=== PATIENT | female | born 2000 | race Hispanic/Latino ===

== ENCOUNTER 2022-12-29 14:51 | Emergency (ER) | payer OTHER ==
[~2022-12-29] VITALS: Ht 165.1 cm; Wt 63.3 kg
[~2022-12-29 14:51] MED LIST: ONDA4TAB6 PO
[2022-12-29] MEDS ORDERED: NS 1,000 ML IV ONE (18:30)
[2022-12-29] MEDS ORDERED: METOCLOPRAMIDE INJ 10MG/2ML VIAL IV ONE (18:30)
[2022-12-29 19:16] LABS: BASO % 0.3 % (0.0-1.0); EOS % 0.3 % (0.0-3.0); HEMATOCRIT 38.4 % (36.0-47.0); HEMOGLOBIN 12.8 g/dl (12.0-15.5); LYMPH % 27.8 % (24.0-44.0); MEAN CORPUSCULAR HEMOGLOBIN 28.6 pg (27.0-33.0); MEAN CORPUSCULAR HGB CONC 33.3 g/dl (32.0-36.5); MEAN CORPUSCULAR VOLUME 85.7 fl (80.0-96.0); MONO # 0.4 10^3/uL (0.0-0.8); MONO % 5.8 % (2.0-8.0); NEUTROPHILS # 4.6 10^3/uL (1.5-8.5); NEUTROPHILS % 65.4 % (36.0-66.0); PLATELET COUNT, AUTOMATED 277 10^3/uL (150-450); RED BLOOD COUNT 4.48 10^6/uL (4.00-5.40); WHITE BLOOD COUNT 7.1 10^3/uL (4.0-10.0)
[2022-12-29 19:42] LABS: BLOOD UREA NITROGEN 8 MG/DL (9-23); CALCIUM LEVEL 8.8 MG/DL (8.5-10.1); CARBON DIOXIDE LEVEL 23 MMOL/L (20-31); CHLORIDE LEVEL 101 MMOL/L (98-107); GLOMERULAR FILTRATION RATE > 60.0 (>60); GLUCOSE, FASTING 70 MG/DL (60-100); POTASSIUM SERUM 3.9 MMOL/L (3.5-5.1); SODIUM LEVEL 134 MMOL/L (136-145)
[2022-12-29 19:55] LABS: HCG, SERUM QUANTITATIVE 80532.9 MIU/ML (<4.2)
[2022-12-29] MEDS ORDERED: REGL10TA6 PO (21:52)
[2022-12-29 22:05] VITALS: BP 113/65; TEMP 98.2; O2SAT 100
== END 2022-12-29 22:07 | disposition home or self-care (01) ==
LOC: M ED 14:51
DX: O21.1 Hyperemesis gravidarum with metabolic disturbance (principal); Z3A.12 12 weeks gestation of pregnancy; Z79.83 Long term (current) use of bisphosphonates; Z79.899 Other long term (current) drug therapy
CPT/HCPCS: 80048; 81001; 84702; 85025; 86850; 86900; 86901; 96361; 96374; 99284; J2765

== ENCOUNTER 2023-01-04 12:49 | Emergency (ER) | payer OTHER ==
[~2023-01-04] VITALS: Ht 165.1 cm; Wt 63.5 kg
[~2023-01-04 12:49] MED LIST changes: +REGL10TA6 PO
[2023-01-04 18:26] LABS: AMORPHOUS SEDIMENT SMALL (NEGATIVE); APPEARANCE, URINE CLOUDY (CLEAR); BACTERIA, URINE AUTO NEGATIVE (NEGATIVE); BILIRUBIN, URINE AUTO NEGATIVE (NEGATIVE); BLOOD, URINE BLOOD NEGATIVE (NEGATIVE); COLOR, URINE YELLOW (YELLOW); GLUCOSE, URINE (UA) AUTO NEGATIVE (NEGATIVE); KETONE, URINE AUTO 1+ mg/dL (NEGATIVE); LEUKOCYTE ESTERASE, URINE AUTO NEGATIVE (NEGATIVE); MUCUS, URINE SMALL (NEGATIVE); NITRITE, URINE AUTO NEGATIVE (NEGATIVE); PROTEIN, URINE AUTO NEGATIVE (NEGATIVE); RBC, URINE AUTO 1 /HPF (0-3); SPECIFIC GRAVITY URINE AUTO 1.016 (1.002-1.035); SQUAMOUS EPITHELIAL CELL UR AU 5 /HPF (0-6); WBC, URINE AUTO 3 /HPF (0-3)
[2023-01-04 18:32] LABS: BASO % 0.2 % (0.0-1.0); EOS % 0.6 % (0.0-3.0); HEMOGLOBIN 13.3 g/dl (12.0-15.5); LYMPH % 30.9 % (24.0-44.0); MEAN CORPUSCULAR HEMOGLOBIN 29.4 pg (27.0-33.0); MEAN CORPUSCULAR HGB CONC 34.1 g/dl (32.0-36.5); MEAN CORPUSCULAR VOLUME 86.3 fl (80.0-96.0); MONO # 0.5 10^3/uL (0.0-0.8); MONO % 7.5 % (2.0-8.0); NEUTROPHILS # 3.9 10^3/uL (1.5-8.5); NEUTROPHILS % 60.5 % (36.0-66.0); PLATELET COUNT, AUTOMATED 274 10^3/uL (150-450); RED BLOOD COUNT 4.52 10^6/uL (4.00-5.40); WHITE BLOOD COUNT 6.4 10^3/uL (4.0-10.0)
[2023-01-04 19:22] VITALS: BP 110/64; TEMP 98; O2SAT 99
== END 2023-01-04 19:25 | disposition home or self-care (01) ==
LOC: M ED 12:49
DX: O26.851 Spotting complicating pregnancy, first trimester (principal); Z3A.13 13 weeks gestation of pregnancy; Z79.83 Long term (current) use of bisphosphonates; Z79.899 Other long term (current) drug therapy

== ENCOUNTER 2023-01-15 08:32 | Emergency (ER) | payer OTHER ==
[~2023-01-15] VITALS: Ht 165.1 cm; Wt 63.8 kg
[2023-01-15 12:24] VITALS: BP 101/60; TEMP 98.6; O2SAT 99
== END 2023-01-15 12:45 | disposition home or self-care (01) ==
LOC: M ED 08:32
DX: O26.892 Other specified pregnancy related conditions, second trimester (principal); R10.9 Unspecified abdominal pain; M54.50 Low back pain, unspecified; W19.XXXA Unspecified fall, initial encounter; Z3A.14 14 weeks gestation of pregnancy; Y99.1 Military activity; Z79.83 Long term (current) use of bisphosphonates; Z79.899 Other long term (current) drug therapy

== ENCOUNTER 2023-02-12 09:06 | Emergency (ER) | payer OTHER ==
[~2023-02-12] VITALS: Ht 152.4 cm; Wt 64.2 kg
[2023-02-12 10:09] LABS: APPEARANCE, URINE HAZY (CLEAR); BACTERIA, URINE AUTO NEGATIVE (NEGATIVE); BILIRUBIN, URINE AUTO NEGATIVE (NEGATIVE); BLOOD, URINE BLOOD NEGATIVE (NEGATIVE); COLOR, URINE YELLOW (YELLOW); GLUCOSE, URINE (UA) AUTO NEGATIVE (NEGATIVE); KETONE, URINE AUTO NEGATIVE (NEGATIVE); LEUKOCYTE ESTERASE, URINE AUTO 2+ (NEGATIVE); MUCUS, URINE SMALL (NEGATIVE); NITRITE, URINE AUTO NEGATIVE (NEGATIVE); PROTEIN, URINE AUTO NEGATIVE (NEGATIVE); RBC, URINE AUTO 2 /HPF (0-3); SPECIFIC GRAVITY URINE AUTO 1.016 (1.002-1.035); SQUAMOUS EPITHELIAL CELL UR AU 10 /HPF (0-6); UROBILINOGEN, URINE AUTO 0.2 mg/dL (0.0-2.0); WBC, URINE AUTO 4 /HPF (0-3)
[2023-02-12 11:38] VITALS: BP 115/56; TEMP 97.5; O2SAT 98
== END 2023-02-12 11:41 | disposition home or self-care (01) ==
LOC: M ED 09:06
DX: O26.892 Other specified pregnancy related conditions, second trimester (principal); S33.5XXA Sprain of ligaments of lumbar spine, initial encounter; W10.8XXA Fall (on) (from) other stairs and steps, initial encounter; Z3A.18 18 weeks gestation of pregnancy